=== PATIENT | female | born 1955 | race Asian ===

== ENCOUNTER → 2016-08-29 | Day surgery (SDC) | payer MEDICARE ==
[2016-08-23 16:19] VITALS: BMI 25.4
[~2016-08-29] VITALS: Ht 162.6 cm; Wt 69.3 kg
[2016-08-29] VITALS (19 sets, daily range): BP systolic 117–159; BP diastolic 44–88; PULSE 69–89; RESP 13–20; Ht 162.6 cm; Wt 69.3 kg
[~2016-08-29] MED LIST: AMLO-147 PO; ASPI81TA3 PO; BUPIVACAINE 0.25% (MPF) 30 ML INJ INJ ONE; BUPIVACAINE 0.25% (MPF) 30 ML INJ ONE; CARV25TA79 PO; CEFAZOLIN 1 GM INJ ONE; CHOL500051 PO; DIPHENHYDRAMINE 50 MG INJ IV PRN; EPHEDrine SULFATE 50 MG/5 ML SYG ONE; FENTAnyl 50 MCG/ML VIAL ONE; GELATIN SIZE 100 SPONGE ONE; HEPARIN 1000 UNITS/ML 10 ML INJ ONE; HYDROmorphONE (0.2 MG/ML) 10ML SYG IV PRN; LABETALOL HCL 20MG INJ IV PRN; LIDOCAINE 1% (MPF) 30 ML INJ INJ ONE; LIDOCAINE 1% (STERILE-PAK) 30 ML INJ ONE; LOSA50TA6 PO; MEPERIDINE 25 MG INJ IV PRN; METOCLOPRAMIDE 10 MG INJ IV PRN; METOCLOPRAMIDE 10 MG INJ ONE; MIDAZOLAM 1 MG/ML 2 ML INJ ONE; ONDANSETRON 4 MG INJ IV PRN; OXYCODONE/ACETAMINOPHEN (5/325) TAB PO PRN; PROPOFOL 200 MG INJ ONE; ROPIVACAINE 0.2% 20 ML VIAL ONE; SEVE0.8P PO; SEVE800T7 PO; THROMBIN 5000 UNIT VIAL ONE; THROMBIN 5000 UNIT VIAL TOP ONE; hydrALAzine 20 MG INJ IV PRN
[2016-08-29 16:24] LABS: ADD SCAN DIFF NO
[2016-08-29 16:27] LABS: BASOPHIL # 0.1 10^3/ul (0.0-0.1); EOSINOPHILS # 0.6 10^3/ul (0.0-0.5); HEMOGLOBIN 10.4 g/dl (12.0-16.0); LYMPHOCYTES # 1.8 10^3/ul (0.8-2.9); LYMPHOCYTES % 34.5 % (15.0-51.0); MEAN CORPUSCULAR HEMOGLOBIN 33.5 pg (29.0-33.0); MEAN CORPUSCULAR HGB CONC 33.5 g/dl (32.0-37.0); MEAN PLATELET VOLUME 9.1 fl (7.4-10.4); MONOCYTE # 0.5 10^3/ul (0.3-0.9); MONOCYTES % 9.5 % (0.0-11.0); NEUTROPHIL # 2.3 10^3/ul (1.6-7.5); NEUTROPHILS % 43.6 % (39.0-77.0); PLATELET COUNT 169 10^3/UL (140-415); RED CELL DISTRIBUTION WIDTH 13.5 % (11.5-14.5); WHITE BLOOD COUNT 5.3 10^3/ul (4.8-10.8)
[2016-08-29 16:40] LABS: INR 1.11; PROTIME 14.3 Sec (12.2-14.2); PT RATIO 1.1
[2016-08-29 16:41] LABS: PARTIAL THROMBOPLASTIN TIME 32.4 Sec (25.0-35.0); POTASSIUM 4.8 mmol/L (3.5-5.1)
--- NOTE | 2016-08-29 16:53 | RADRPT ---
PROCEDURE: XR Chest. CLINICAL INDICATION: Preoperative for dialysis fistula. TECHNIQUE: Single frontal view. COMPARISON: None. FINDINGS: There is a tunneled right internal jugular vein dialysis catheter with the tip in the lower superior vena cava. The lungs are clear. The heart size is normal. There is no pleural effusion. There is no pneumothorax. IMPRESSION: 1. Tunneled right IJ dialysis catheter in satisfactory position. 2. Clear lungs. RPTAT: QQ .Sarabjit Toure MD, MD Date Time Electronically viewed and signed by .Sarabjit Toure MD, MD on 08/29/2016 16:53 .R/
[2016-08-29 16:58] LABS: CALCIUM 9.2 mg/dl (8.4-10.2); CREATININE 8.83 mg/dl (0.44-1.00)
[2016-08-29 17:05] LABS: ADD UMIC YES; URINE BILIRUBIN (Dip) NEGATIVE (NEGATIVE); URINE BLOOD (Dip) TRACE (NEGATIVE); URINE COLOR LT. YELLOW (YELLOW); URINE KETONES (Dip) NEGATIVE (NEGATIVE); URINE LEUKOCYTE ESTERASE (Dip) TRACE (NEGATIVE); URINE NITRITE (Dip) NEGATIVE (NEGATIVE); URINE TOTAL PROTEIN (Dip) 2+ (NEGATIVE); URINE UROBILINOGEN (Dip) 0.2 E.U./dL (0.1-1.0)
[2016-08-29 17:22] LABS: BACTERIA,URINE FEW
--- NOTE | 2016-08-29 23:43 | OPR ---
DATE OF OPERATION: PREOPERATIVE DIAGNOSIS: Renal failure. POSTOPERATIVE DIAGNOSIS: Renal failure. OPERATION PERFORMED: Left arm arteriovenous fistula placement. SURGEON: Melany Coker MD ANESTHESIA: Local plus IV sedation. CONSENT: Risks, benefits, complications, alternative therapies explained to the patient and the [facility], consent obtained. OPERATIVE TECHNIQUE: The patient was placed in supine position, prepped and draped in the usual hyun rile fashion, 1% lidocaine was used throughout the operation for local anesthesia. A timeout was ca lled and I started. I made a 4 cm incision in the left forearm below the antecubital fossa. Incisi on was taken down to the subcutaneous tissue and antecubital vein which connected to the cephalic ve in, was identified. Vessel loops were passed around it. The brachial artery just proximal to its b ifurcation was identified. Vessel loops were passed around it. The patient was given 5000 units of IV heparin. The vein was transected distally, anastomosed to the artery to a 4 mm longitudinal art eriotomy in end-to-side fashion with 7-0 Prolene continuous suture technique. The wound was irrigat ed and closed in 2 layers with 3-0 Vicryl suture in running subcuticular skin closure. The patient had a strong Doppler signal in the radial and ulnar vessels. No signs of ischemia. Tolerated proce dure well. Dictated By: MELANY WEN/ELINOR Conf#: [id number] DID#: [id number]
--- NOTE | 2016-09-02 15:17 | RADRPT ---
Vent Rate: 71 bpm RR Interval: 0 msec NV Interval: 160 msec QRS Duration: 84 msec QT Interval: 410 msec QTC Interval: 445 msec P-R-T Success: 70 - 44 - 67 degrees Normal sinus rhythm Normal ECG Electronically Signed By: Alpesh Munson [id number]
== END | disposition home or self-care (01) ==
LOC: SDS 15:26
PROVIDERS: ATTEND Thoracic Surgery (Cardiothoracic Vascular Surgery)
DX: I12.0 Hypertensive chronic kidney disease with stage 5 chronic kidney disease or end stage renal disease (principal); N18.6 End stage renal disease; E11.9 Type 2 diabetes mellitus without complications
CPT/HCPCS: 36821; 71010; 80048; 81001; 81003; 82962; 85025; 85610; 85730; 93005; C1725; J0690; J1644; J2250; J2765; J2795; J3010